=== PATIENT | female | born 1970 | race Two or more races ===

== ENCOUNTER 2024-09-01 13:19 | Outpatient (AMB) | payer MEDICAID, SELFPAY ==
[2024-09-01 13:26] VITALS: BP 123/74; PULSE 101; RESP 16; TEMP 36.9; O2SAT 94; BMI 57.2
--- NOTE | 2024-09-01 13:26 | PD.RESCLINIC ---
Vital Signs 09/01/24 13:26 Height 1.55 m Height Method Stated Weight 137.438 kg Weight Measurement Method Standing Scale BMI 57.2 BP 123/74 Blood Pressure Source Automatic Cuff Blood Pressure Location Left Upper Arm Position Sitting Respiration 16 Pulse 101 H Pulse Source Monitor Temp 98.5 F Temp Source Oral Pulse Oximetry (%) 94 L Oxygen Delivery Method Room Air Allergies/Meds Allergies & Medications Allergies No Known Allergies Allergy (Verified 09/01/24 13:27) Medication Reconciliation acetaminophen 500 mg tablet 500 mg PO Q6H PRN pain #20 tabs 07/26/20 [Rx Confirmed 09/01/24] omeprazole magnesium 20 mg tablet,delayed release (Prilosec OTC) 20 mg PO QDAY #60 tabs 07/26/20 [Rx Confirmed 09/01/24] cephalexin 750 mg capsule 750 mg PO TID #10 caps 07/31/24 [Rx Confirmed 09/01/24] tirzepatide (weight loss) 2.5 mg/0.5 mL subcutaneous pen injector (Zepbound) 2.5 mg (0.5 mL) subcut QWEEK #2 mL 08/11/24 [Rx Confirmed 09/01/24] docusate sodium 100 mg capsule 100 mg PO BID PRN Constipation #60 caps 09/01/24 [Rx] ferrous sulfate 325 mg (65 mg iron) tablet 325 mg PO Q48H #60 tabs 09/01/24 [Rx] furosemide 40 mg tablet 40 mg PO QAM #30 tabs 09/01/24 [Rx] omeprazole 20 mg capsule,delayed release 20 mg PO QDAY 30 days #30 caps 09/01/24 [Rx] MA Intake Visit Data Collection New Patient or Established: Established Patient (seen at [facility] within 3 years) Seen by Clinical Staff ONLY (RN/MA): No Pain Present Currently: Yes Pain Location: Knee Pain scale:: 3 Pain Scale Used: Morgan-Hoffman/Numerical PCP or OBGYN visit in last 3 months: Yes Do You Feel Safe at Home: Yes Authorities Contacted: N/A Smoking Status Smoking Status: Never smoker Immunization / Flu Flu Vaccine in the Last 12 Months: No Flu Vaccine Exclusion Criteria: No Exclusion Criteria Past Medical History Past Medical History NEUROLOGIC: Negative Seizures CARDIAC: Negative Cardiac Disorders or Congestive Heart Failure RESPIRATORY: Negative Chronic Obstructive Pulmonary Disease (COPD) or Asthma GASTROINTESTINAL: Positive Gastroesophageal Reflux Disease GENITOURINARY: Negative Renal Disease ENDOCRINE: Negative Diabetes Mellitus Type 1 or Diabetes Mellitus Type 2 HEMATOLOGIC: Positive Anemia; Negative Sickle Cell Disease OTHER HISTORY: Negative Blood Transfusions, Blood Transfusion Reaction or Anesthesia Reactions Family History FAMILY HISTORY: Positive Family Cancer Social History SMOKING STATUS: Smoking status: Never smoker SECOND HAND EXPOSURE: second hand exposure: No ALCOHOL: Alcohol Intake: Current ALCOHOL FREQUENCY: Alcohol Intake Frequency: 3 or More Drinks per Day HOUSING: Housing: House LIVES WITH: Lives With: Family Patient Clive Ranjeetmaryellen Social History Living Situation History Housing: House Housing Other:: pt lives with 2 kids and her fiance Tobacco History Smoking Status: Never smoker Second Hand Smoke Exposure: No Alcohol History Alcohol Intake: Current Alcohol Intake Frequency: 3 or More Drinks per Day Alcohol Intake Frequency Other:: every other day with 6 cans of beer Domestic Abuse History Do You Feel Safe at Home: Yes Review of Systems Report any current symptoms Only answer those that you have currently: Past Medical History Past Medical History Have you ever been diagnosed with any of the following: Neurological Problems Seizures: No Cardiology Problems Congestive Heart Failure: No Respiratory Problems Chronic Obstructive Pulmonary Disease (COPD): No Asthma: No Stomache/Intestinal Problems Gastroesophageal Reflux Disease: Yes Genital/Urinary Problems Renal Disease: No Endocrine Problems Diabetes Mellitus Type 1: No Diabetes Mellitus Type 2: No Blood Problems Anemia: Yes Sickle Cell Disease: No Other Problems Blood Transfusions: No Blood Transfusion Reaction: No Anesthesia Reactions: No History of Present Illness HPI Narrative Ms. carpenter is a 53 year old female with past medical history signifcant for symptomatic anemia and morbid obesity who presents to clinic for follow up. She was recently admitted to the hospital and recommended to follow up with a sleep study to use the CPAP and she was found to have a hemoglobin 9.9 as was told to get the 3-4 iron infusions at a center out patient. During her hospitalization also the hospitalist team recommended patient to lose weight in efforts to manage her obesity hypoventilation syndrome that is not requiring a CPAP at night. Patient is being seen at the [facility] for follow-up morbid obesity and anemia. CBC ordered for September, we will decide then if we need to schedule iron infusions. Refilled her GLP1. Objective/Exam Narrative Physical exam: GENERAL:Obese, Awake, alert and oriented. No acute distress. HEENT: Normocephalic, atraumatic and nontender.? Pupils are equal and reactive to light and accommodation.? Oral mucosa are moist. NECK: Supple without adenopathy.. Nontender, carotid pulse 2+ bilaterally without bruits, no JVD.? CHEST: Heart rate and rythm normal, no murmurs, gallops auscultated. S1 & 2 normal insensity. Nontender on palpation, no deformity and no crepitus. LUNGS: Lung sounds are clear.? No wheezing, rales or ronchi.? No intercostal subcostal retraction. Room air ABDOMEN: Soft,symmetric , nontender, no guarding or rebound tenderness. No abnormal masses palpated.? No pulsatile masses or bruits.? Bowel sounds are normoactive in all 4 quadrants. EXTREMITIES: Nontender.? No pitting edema.? No cyanosis.? Patient is able to move all 4 extremities. SKIN: No rashes noted. NEURO:? Cranial nerves intact.? There is no focalization.? GCS is 15. Assessment & Plan Diagnosis / Problem List (1) Anemia: Status: Acute Assessment & Plan: Ms. carpenter is a 53 year old female with past medical history signifcant for symptomatic anemia and morbid obesity who presents to clinic for follow up. She was recently admitted to the hospital and recommended to follow up with a sleep study to use the CPAP and she was found to have a hemoglobin 9.9 as was told to get the 3-4 iron infusions at a center out patient. During her hospitalization also the hospitalist team recommended patient to lose weight in efforts to manage her obesity hypoventilation syndrome that is not requiring a CPAP at night. Patient is being seen at the [facility] for follow-up morbid obesity and anemia. CBC ordered for September, we will decide then if we need to schedule iron infusions. Refilled her GLP1. Patient's care discussed with attending physician, Dr Sagar Steele MD PGY3 Plan: Follow up CBC in september Plan Follow up CBC in september Orders: Orders CBC 1 Month D64.9 - Anemia, unspecified Office Procedures [facility] Level of Care Nursing/Assessment Patient Status: Established Patient Nursing Assessment/Reassessment: Medication Reconciliation, Update PMH in EMR and Vital Signs Coordination of Care: Complex Care and Chronic Disease 1-5, Education Complex Pt/Fam and Staff clarify orders Established Patient Charge Established Patient Point Assignment: 85 Established Patient Point Charge: EP Level 3 (80-115)
== END 2024-09-01 14:18 | disposition home or self-care (01) ==
LOC: HODAHC 13:19
PROVIDERS: Supervising Provider Internal Medicine; Visit Provider Student in an Organized Health Care Education/Training Program
DX: D64.9 Anemia, unspecified (principal)
CPT/HCPCS: 99213; G0463

== ENCOUNTER 2024-10-06 14:35 | Outpatient (AMB) | payer MEDICAID, SELFPAY ==
[2024-10-06 10:11] VITALS: BP 125/78; PULSE 77; RESP 17; TEMP 36.5; O2SAT 98; BMI 57.2
--- NOTE | 2024-10-21 09:59 | ACNOTE_ITS ---
Vital Signs 10/06/24 10:11 Height 1.55 m Height Method Stated Weight 137.45 kg Weight Measurement Method Standing Scale BMI 57.2 BP 125/78 Blood Pressure Source Automatic Cuff Blood Pressure Location Left Upper Arm Position Sitting Respiration 17 Pulse 77 Pulse Source Monitor Temp 97.7 F Temp Source Oral Pulse Oximetry (%) 98 Oxygen Delivery Method Room Air Allergies/Meds Allergies & Medications Allergies No Known Allergies Allergy (Verified 10/27/24 15:04) Medication Reconciliation acetaminophen 500 mg tablet 500 mg PO Q6H PRN pain #20 tabs 07/26/20 [Rx Confirmed 10/27/24] omeprazole magnesium 20 mg tablet,delayed release (Prilosec OTC) 20 mg PO QDAY #60 tabs 07/26/20 [Rx Confirmed 10/27/24] cephalexin 750 mg capsule 750 mg PO TID #10 caps 07/31/24 [Rx Confirmed 10/27/24] tirzepatide (weight loss) 2.5 mg/0.5 mL subcutaneous pen injector (Zepbound) 2.5 mg (0.5 mL) subcut QWEEK #2 mL 08/11/24 [Rx Confirmed 10/27/24] docusate sodium 100 mg capsule 100 mg PO BID PRN Constipation #60 caps 09/01/24 [Rx Confirmed 10/27/24] ferrous sulfate 325 mg (65 mg iron) tablet 325 mg PO Q48H #60 tabs 10/06/24 [Rx Confirmed 10/27/24] furosemide 20 mg tablet 20 mg PO QPM 30 days #30 tabs 10/06/24 [Rx Confirmed 10/27/24] furosemide 40 mg tablet 40 mg PO QAM #30 tabs 10/06/24 [Rx Confirmed 10/27/24] omeprazole 20 mg capsule,delayed release 20 mg PO QDAY 30 days #30 caps 10/06/24 [Rx Confirmed 10/27/24] tirzepatide 7.5 mg/0.5 mL subcutaneous pen injector 7.5 mg (0.5 mL) subcut QWEEK 30 days #2.5 mL 10/06/24 [Rx Confirmed 10/27/24] tirzepatide 10 mg/0.5 mL subcutaneous pen injector 10 mg (0.5 mL) subcut QWEEK 4 weeks #2 mL 10/27/24 [Rx] MA Intake Visit Data Collection New Patient or Established: Established Patient (seen at [facility] within 3 years) Seen by Clinical Staff ONLY (RN/MA): No Pain Present Currently: No Pain scale:: 0 Pain Scale Used: Morgan-Hoffman/Numerical [employer]ulic Lift [employer] Required: No PCP or OBGYN visit in last 3 months: Yes Hx Now: No Do You Feel Safe at Home: Yes Authorities Contacted: N/A Smoking Status Smoking Status: Never smoker Immunization / Flu Flu Vaccine in the Last 12 Months: No Flu Vaccine Exclusion Criteria: No Exclusion Criteria Past Medical History Past Medical History NEUROLOGIC: Negative Seizures CARDIAC: Negative Cardiac Disorders or Congestive Heart Failure RESPIRATORY: Negative Chronic Obstructive Pulmonary Disease (COPD) or Asthma GASTROINTESTINAL: Positive Gastroesophageal Reflux Disease GENITOURINARY: Negative Renal Disease ENDOCRINE: Negative Diabetes Mellitus Type 1 or Diabetes Mellitus Type 2 HEMATOLOGIC: Positive Anemia; Negative Sickle Cell Disease OTHER HISTORY: Negative Blood Transfusions, Blood Transfusion Reaction or Anesthesia Reactions Family History FAMILY HISTORY: Positive Family Cancer Social History SMOKING STATUS: Smoking status: Never smoker SECOND HAND EXPOSURE: second hand exposure: No ALCOHOL: Alcohol Intake: Current ALCOHOL FREQUENCY: Alcohol Intake Frequency: 3 or More Drinks per Day HOUSING: Housing: House LIVES WITH: Lives With: Family Patient Portal Ranjeetmaryellen Social History Living Situation History Housing: House Housing Other:: pt lives with 2 kids and her fiance Tobacco History Smoking Status: Never smoker Second Hand Smoke Exposure: No Alcohol History Alcohol Intake: Current Alcohol Intake Frequency: 3 or More Drinks per Day Alcohol Intake Frequency Other:: every other day with 6 cans of beer Domestic Abuse History Do You Feel Safe at Home: Yes Review of Systems Report any current symptoms Only answer those that you have currently: Past Medical History Past Medical History Have you ever been diagnosed with any of the following: Neurological Problems Seizures: No Cardiology Problems Congestive Heart Failure: No Respiratory Problems Chronic Obstructive Pulmonary Disease (COPD): No Asthma: No Stomache/Intestinal Problems Gastroesophageal Reflux Disease: Yes Genital/Urinary Problems Renal Disease: No Endocrine Problems Diabetes Mellitus Type 1: No Diabetes Mellitus Type 2: No Blood Problems Anemia: Yes Sickle Cell Disease: No Other Problems Blood Transfusions: No Blood Transfusion Reaction: No Anesthesia Reactions: No History of Present Illness HPI Narrative Ms. carpenter is a 53 year old female with past medical history significant for symptomatic anemia and morbid obesity on cpap and home oxygen. Pt was recently started on zepbound for weight loss. This is month 2, pt's dose was increased last visit and pt was able to tolerate the change. Pt denies SOB, GERD, diarhhea and/or constipation. Pt had lost 5 pounds since last visit. Pt denies any flu like symtpoms and denies sick contacts. Review of Systems Review of Systems Systems Reviewed: All systems reviewed, normal except as documented Objective/Exam Narrative Physical exam: GENERAL: A&Ox3 . Awake, Not in acute distress, morbidly obese female NEURO: no focal neurological deficits HEENT: Atraumatic, Normocephalic. mucous membranes moist. Eyes open, symmetrical, & clear HEART: Normal Heart Sounds LUNGS: Clear to auscultation with no wheezing or crackles. ABDOMEN: soft, non-distended, non-tender SKIN: No Rash or ecchymoses EXTREMITIES: No edema, tenderness, able to move all 4 extremities, pedal pulses palpated Assessment & Plan Diagnosis / Problem List (1) Morbid obesity: Status: Acute Assessment & Plan: Pt's BMI is 57.2 percentile, currently weights 137.5 Pt has lost 5 pounds Plan: -increase tirzepatide to 7.5 mg/0.5 mL Q weekly -continue to diet and exercise -stay hydrated -report and monitor side affects -follow up in 1 month Additional Assessment Internal Medicine Attending Note: Case discussed with and agree with note and management plan of Resident Physician as per Resident's Note above. Issues of concern for present visit are as follows: Follow-up visit. Patient tolerating GLP-1. Has lost just over 2 kg since last visit. We will increase dose of GLP up. Continue to work at weight loss as will benefit obesity hypoventilation. Consideration for sleep study in the future to assess for sleep apnea though prior workup in hospital did not demonstrate need for CPAP. Recheck CBC at next visit with history of anemia, iron deficiency, may need iron infusion. Babar Keith MD Physician Billing Established Patient Established Patient: E/M Level 3-CPT 82851 Office Procedures [facility] Level of Care Nursing/Assessment Patient Status: Established Patient Nursing Assessment/Reassessment: Medication Reconciliation, Update PMH in EMR and Vital Signs Coordination of Care: Complex Care and Chronic Disease 1-5, Consent,records obtained, informed consent, Education Simp Pt/Fam, Lab and Imaging orders and Staff clarify orders Established Patient Charge Established Patient Point Assignment: 100 Established Patient Point Charge: EP Level 3 (80-115)
== END 2024-10-06 15:30 | disposition home or self-care (01) ==
LOC: HODAHC 14:35
PROVIDERS: Supervising Provider Internal Medicine
DX: E66.01 Morbid (severe) obesity due to excess calories (principal); Z68.43 Body mass index [BMI] 50.0-59.9, adult; Z99.89 Dependence on other enabling machines and devices
CPT/HCPCS: 99213; G0463

== ENCOUNTER 2024-10-27 14:55 | Outpatient (AMB) | payer MEDICAID, SELFPAY ==
[2024-10-27 15:03] VITALS: BP 124/85; PULSE 90; RESP 18; TEMP 36.8; O2SAT 92; BMI 56.4
--- NOTE | 2024-10-27 15:03 | PD.RESCLINIC ---
Vital Signs 10/27/24 15:03 Height 1.55 m Height Method Stated Weight 135.397 kg Weight Measurement Method Standing Scale BMI 56.4 BP 124/85 H Blood Pressure Source Automatic Cuff Blood Pressure Location Left Upper Arm Position Sitting Respiration 18 Pulse 90 Pulse Source Monitor Temp 98.3 F Temp Source Oral Pulse Oximetry (%) 92 L Oxygen Delivery Method Room Air Allergies/Meds Allergies & Medications Allergies No Known Allergies Allergy (Verified 10/27/24 15:04) Medication Reconciliation acetaminophen 500 mg tablet 500 mg PO Q6H PRN pain #20 tabs 07/26/20 [Rx Confirmed 10/27/24] omeprazole magnesium 20 mg tablet,delayed release (Prilosec OTC) 20 mg PO QDAY #60 tabs 07/26/20 [Rx Confirmed 10/27/24] cephalexin 750 mg capsule 750 mg PO TID #10 caps 07/31/24 [Rx Confirmed 10/27/24] tirzepatide (weight loss) 2.5 mg/0.5 mL subcutaneous pen injector (Zepbound) 2.5 mg (0.5 mL) subcut QWEEK #2 mL 08/11/24 [Rx Confirmed 10/27/24] docusate sodium 100 mg capsule 100 mg PO BID PRN Constipation #60 caps 09/01/24 [Rx Confirmed 10/27/24] ferrous sulfate 325 mg (65 mg iron) tablet 325 mg PO Q48H #60 tabs 10/06/24 [Rx Confirmed 10/27/24] furosemide 20 mg tablet 20 mg PO QPM 30 days #30 tabs 10/06/24 [Rx Confirmed 10/27/24] furosemide 40 mg tablet 40 mg PO QAM #30 tabs 10/06/24 [Rx Confirmed 10/27/24] omeprazole 20 mg capsule,delayed release 20 mg PO QDAY 30 days #30 caps 10/06/24 [Rx Confirmed 10/27/24] tirzepatide 7.5 mg/0.5 mL subcutaneous pen injector 7.5 mg (0.5 mL) subcut QWEEK 30 days #2.5 mL 10/06/24 [Rx Confirmed 10/27/24] tirzepatide 10 mg/0.5 mL subcutaneous pen injector 10 mg (0.5 mL) subcut QWEEK #2 mL 11/07/24 [Rx] MA Intake Visit Data Collection New Patient or Established: Established Patient (seen at [facility] within 3 years) Pain Present Currently: Yes Pain Location: Knee Pain scale:: 5 Pain Scale Used: Morgan-Hoffman/Numerical PCP or OBGYN visit in last 3 months: Yes Smoking Status Smoking Status: Never smoker Immunization / Flu Flu Vaccine in the Last 12 Months: No Flu Vaccine Exclusion Criteria: No Exclusion Criteria Past Medical History Past Medical History NEUROLOGIC: Negative Seizures CARDIAC: Negative Cardiac Disorders or Congestive Heart Failure RESPIRATORY: Negative Chronic Obstructive Pulmonary Disease (COPD) or Asthma GASTROINTESTINAL: Positive Gastroesophageal Reflux Disease GENITOURINARY: Negative Renal Disease ENDOCRINE: Negative Diabetes Mellitus Type 1 or Diabetes Mellitus Type 2 HEMATOLOGIC: Positive Anemia; Negative Sickle Cell Disease OTHER HISTORY: Negative Blood Transfusions, Blood Transfusion Reaction or Anesthesia Reactions Family History FAMILY HISTORY: Positive Family Cancer Social History SMOKING STATUS: Smoking status: Never smoker SECOND HAND EXPOSURE: second hand exposure: No ALCOHOL: Alcohol Intake: Current ALCOHOL FREQUENCY: Alcohol Intake Frequency: 3 or More Drinks per Day HOUSING: Housing: House LIVES WITH: Lives With: Family Patient Clive Tucker Social History Living Situation History Housing: House Housing Other:: pt lives with 2 kids and her fiance Tobacco History Smoking Status: Never smoker Second Hand Smoke Exposure: No Alcohol History Alcohol Intake: Current Alcohol Intake Frequency: 3 or More Drinks per Day Alcohol Intake Frequency Other:: every other day with 6 cans of beer Review of Systems Report any current symptoms Only answer those that you have currently: Past Medical History Past Medical History Have you ever been diagnosed with any of the following: Neurological Problems Seizures: No Cardiology Problems Congestive Heart Failure: No Respiratory Problems Chronic Obstructive Pulmonary Disease (COPD): No Asthma: No Stomache/Intestinal Problems Gastroesophageal Reflux Disease: Yes Genital/Urinary Problems Renal Disease: No Endocrine Problems Diabetes Mellitus Type 1: No Diabetes Mellitus Type 2: No Blood Problems Anemia: Yes Sickle Cell Disease: No Other Problems Blood Transfusions: No Blood Transfusion Reaction: No Anesthesia Reactions: No History of Present Illness HPI Narrative Ms. carpenter is a 53 year old female with past medical history significant for symptomatic anemia and morbid obesity on cpap at night and home oxygen presents to the office for a follow up appointment for weightloss. Pt is month 3 of zepbound and reported minimal weight loss with the previuous dose. Pt states she has lost 5 pounds total since started zepbound 2 months ago. She reports she has not has much of an appetite and has significantly decreased caloric intake she is not losing the weight at a desired rate. Pt reported no side affects to current dose of zepbound, denies nausea, GERD, diarrhea or constipation. she states she can work on drinking more water. Pt wanted to up the dose of zepbound to the next dose. Pt also wants to start exercising once the weather gets better. Pt states her exercise is limited because of the need for oxygen however she states once the weather gets better than she would be able to walk outdoor for 30 mins. Pt is also requesting referral for routine papsmear and mammogram as she has not gotten either one of them done. Pt has no other complaints. Review of Systems Review of Systems Systems Reviewed: All systems reviewed, normal except as documented Objective/Exam Narrative Physical exam: GENERAL: A&Ox3 . Awake, Not in acute distress NEURO: no focal neurological deficits HEENT: Atraumatic, Normocephalic. mucous membranes moist. Eyes open, symmetrical, & clear HEART: Normal Heart Sounds LUNGS: Clear to auscultation with no wheezing or crackles. ABDOMEN: soft, non-distended, non-tender, bowel sounds heard, no guarding or rebound tenderness SKIN: No Rash or ecchymoses EXTREMITIES: 1+ edema, tenderness, able to move all 4 extremities, pedal pulses palpated Assessment & Plan Diagnosis / Problem List (1) Morbid obesity: Status: Acute Assessment & Plan: Currently Pt is has lost 5 pounds on 2 months of zepound. Pt reports no side affects including nausea/vomiting, diarhea, constipation or GERD Plan: -increase zepbound to 10mg -continue calorie count -introduce mild excercise to daily routine (2) Symptomatic anemia: Status: Acute Assessment & Plan: Contributing to her need for oxygen. Supplementing iron orally. Plan: Recheck of CBC ordered at prior visit. (3) Breast cancer screening: Status: Acute Assessment & Plan: Pt has never gotten routine mammogram done. Current mammogram screening for women include Annual mammograms at the age of 40. Plan: -mammogram referral sent Orders: Orders PARAM CAD screening BI 10/27/24 Z12.39 - Encounter for other screening for malignant neoplasm of breast CBC 10/27/24 Comprehensive Metabolic Panel 10/27/24 Vitamin D 25 Hydroxy Total 10/27/24 Referrals [employer]DER Additional Assessment Internal Medicine Attending Note: Case discussed with and agree with note and management plan of Resident Physician as per Resident's Note above. Issues of concern for present visit are as follows: Follow-up visit. Blood pressure remains under good control. Has lost approximately 2 kg since visit earlier in month, but still with a BMI of 56.4. Has decreased calorie intake. Tolerating Zepbound. Continuing to use home oxygen, CPAP at night. Orally supplementing iron with history of iron deficiency anemia. Still has decreased exercise tolerance, exertional dyspnea. Finds it difficult to move given having to use home oxygen. Has not been able to resume work. We will try increasing the dose of Zepbound. Continue diuretics, iron supplementation, PPI. Patient would benefit from formal sleep study, she will need a referral for this. Recheck of CBC ordered at prior visit. At next visit, would do ambulatory pulse ox check/walking test to assess need for continued oxygen supplementation with exertion. Babar Keith MD Physician Billing Established Patient Established Patient: E/M Level 3-CPT 42418 Office Procedures [facility] Level of Care Nursing/Assessment Patient Status: Established Patient Nursing Assessment/Reassessment: Medication Reconciliation, Update PMH in EMR and Vital Signs Coordination of Care: Complex Care and Chronic Disease 1-5, Consent,records obtained, informed consent, Education Simp Pt/Fam, Lab and Imaging orders and Staff clarify orders Established Patient Charge Established Patient Point Assignment: 100 Established Patient Point Charge: EP Level 3 (80-115)
== END 2024-10-27 16:00 | disposition home or self-care (01) ==
LOC: HODAHC 14:55
PROVIDERS: Supervising Provider Internal Medicine
DX: E66.01 Morbid (severe) obesity due to excess calories (principal); D50.9 Iron deficiency anemia, unspecified; Z68.43 Body mass index [BMI] 50.0-59.9, adult; R06.00 Dyspnea, unspecified; Z99.81 Dependence on supplemental oxygen; Z99.89 Dependence on other enabling machines and devices
CPT/HCPCS: 99213; G0463

== ENCOUNTER 2024-11-24 15:42 | Outpatient (AMB) | payer MEDICAID, SELFPAY ==
[2024-11-24 15:33] VITALS: BP 128/87; PULSE 109; RESP 16; TEMP 36.2; O2SAT 99; BMI 55.5
--- NOTE | 2024-11-24 15:33 | ACNOTE_ITS ---
Vital Signs 11/24/24 15:33 Height 1.55 m Height Method Stated Weight 133.47 kg Weight Measurement Method Standing Scale BMI 55.5 BP 128/87 H Blood Pressure Source Automatic Cuff Blood Pressure Location Left Upper Arm Position Sitting Respiration 16 Pulse 109 H Pulse Source Monitor Temp 97.2 F Temp Source Oral Pulse Oximetry (%) 99 Oxygen Delivery Method Room Air Allergies/Meds Allergies & Medications Allergies No Known Allergies Allergy (Verified 11/24/24 15:34) Medication Reconciliation acetaminophen 500 mg tablet 500 mg PO Q6H PRN pain #20 tabs 07/26/20 [Rx Confirmed 11/24/24] omeprazole magnesium 20 mg tablet,delayed release (Prilosec OTC) 20 mg PO QDAY #60 tabs 07/26/20 [Rx Confirmed 11/24/24] cephalexin 750 mg capsule 750 mg PO TID #10 caps 07/31/24 [Rx Confirmed 11/24/24 ] tirzepatide (weight loss) 2.5 mg/0.5 mL subcutaneous pen injector (Zepbound) 2.5 mg (0.5 mL) subcut QWEEK #2 mL 08/11/24 [Rx Confirmed 11/24/24] furosemide 20 mg tablet 20 mg PO QPM 30 days #30 tabs 10/06/24 [Rx Confirmed 11/24/24] tirzepatide 7.5 mg/0.5 mL subcutaneous pen injector 7.5 mg (0.5 mL) subcut QWEEK 30 days #2.5 mL 10/06/24 [Rx Confirmed 11/24/24] tirzepatide 10 mg/0.5 mL subcutaneous pen injector 10 mg (0.5 mL) subcut QWEEK #2 mL 11/07/24 [Rx Confirmed 11/24/24] docusate sodium 100 mg capsule 100 mg PO BID PRN Constipation #60 caps 11/24/24 [Rx] ferrous sulfate 325 mg (65 mg iron) tablet 325 mg PO Q48H #60 tabs 11/24/24 [Rx] furosemide 40 mg tablet 40 mg PO QAM #30 tabs 11/24/24 [Rx] omeprazole 20 mg capsule,delayed release 20 mg PO QDAY 30 days #30 caps 11/24/24 [Rx] ND Intake Visit Data Collection New Patient or Established: Established Patient (seen at [facility] within 3 years) Seen by Clinical Staff ONLY (RN/MA): No Pain Present Currently: No Pain scale:: 0 Pain Scale Used: Morgan-Hoffman/Numerical Process Coordinator Required: No PCP or OBGYN visit in last 3 months: Yes Date of Last PCP or OBGYN visit: 10/27/24 Hx Now: No Do You Feel Safe at Home: Yes Authorities Contacted: N/A Smoking Status Smoking Status: Never smoker Immunization / Flu Flu Vaccine in the Last 12 Months: Yes Flu Vaccine Exclusion Criteria: No Exclusion Criteria Past Medical History Past Medical History NEUROLOGIC: Negative Seizures CARDIAC: Negative Cardiac Disorders or Congestive Heart Failure RESPIRATORY: Negative Chronic Obstructive Pulmonary Disease (COPD) or Asthma GASTROINTESTINAL: Positive Gastroesophageal Reflux Disease GENITOURINARY: Negative Renal Disease ENDOCRINE: Negative Diabetes Mellitus Type 1 or Diabetes Mellitus Type 2 HEMATOLOGIC: Positive Anemia; Negative Sickle Cell Disease OTHER HISTORY: Negative Blood Transfusions, Blood Transfusion Reaction or Anesthesia Reactions Family History FAMILY HISTORY: Positive Family Cancer Social History SMOKING STATUS: Smoking status: Never smoker SECOND HAND EXPOSURE: second hand exposure: No ALCOHOL: Alcohol Intake: Current ALCOHOL FREQUENCY: Alcohol Intake Frequency: 3 or More Drinks per Day HOUSING: Housing: House LIVES WITH: Lives With: Family Patient Portal Questionaires PHQ-9 PHQ-2 Over the last 2 weeks, how often have you been bothered by any of the following problems? 1. Little interest or pleasure in doing things: not at all 2. Feeling down, depressed, or hopeless: not at all Total score: 0 Depression screen completed yes Social History Living Situation History Housing: House Housing Other:: pt lives with 2 kids and her fiance Tobacco History Smoking Status: Never smoker Second Hand Smoke Exposure: No Alcohol History Alcohol Intake: Current Alcohol Intake Frequency: 3 or More Drinks per Day Alcohol Intake Frequency Other:: every other day with 6 cans of beer Domestic Abuse History Do You Feel Safe at Home: Yes Review of Systems Report any current symptoms Only answer those that you have currently: Past Medical History Past Medical History Have you ever been diagnosed with any of the following: Neurological Problems Seizures: No Cardiology Problems Congestive Heart Failure: No Respiratory Problems Chronic Obstructive Pulmonary Disease (COPD): No Asthma: No Stomache/Intestinal Problems Gastroesophageal Reflux Disease: Yes Genital/Urinary Problems Renal Disease: No Endocrine Problems Diabetes Mellitus Type 1: No Diabetes Mellitus Type 2: No Blood Problems Anemia: Yes Sickle Cell Disease: No Other Problems Blood Transfusions: No Blood Transfusion Reaction: No Anesthesia Reactions: No History of Present Illness HPI Narrative mammogram is scheduled February 13. without oxygen during day 2-3 hours during the day when running errands. Pt regularly used bipap at night. recently had flu like symptoms due to grand kids being ill. referral to quality control systems manager labs next appointment need refill to zepbound, omeprazole, iron, lasix 40mg, colace, send to [facility] Assessment & Plan Diagnosis / Problem List (1) Obesity hypoventilation syndrome: Status: Acute Orders: Referrals Sleep Study E66.2 - Morbid (severe) obesity with alveolar hypoventilation Office Procedures [facility] Level of Care Nursing/Assessment Patient Status: Established Patient Nursing Assessment/Reassessment: BP Monitoring, Medication Reconciliation, Update PMH in EMR and Vital Signs Coordination of Care: Consent,records obtained, informed consent, Education Simp Pt/Fam, Lab and Imaging orders and Staff clarify orders Established Patient Charge Established Patient Point Assignment: 90 Established Patient Point Charge: EP Level 3 (80-115)
== END 2024-11-24 15:42 | disposition home or self-care (01) ==
LOC: HODAHC 15:42
DX: E66.2 Morbid (severe) obesity with alveolar hypoventilation (principal)
CPT/HCPCS: 99213; G0463

== ENCOUNTER → 2024-12-14 | Outpatient (CLI) | payer MEDICAID, SELFPAY ==
--- NOTE | 2024-12-14 11:00 | XR_ITS ---
Examination: Screening digital mammography, bilateral Computer aided detection 3-D breast Tomosynthesis, bilateral Date and time of exam: December 14, 2024 1102 hours Compared to mammograms dating to February 06, 2015 Indication: Screening Technique: Nonmagnified MLO, CC views of the breasts to been obtained, reconstructed from 3-D Tomosynthesis images. R2 computer aided detection program utilized for evaluation of suspicious masses and/or abnormal calcifications. 3-D Tomosynthesis images obtained. Findings: Scattered areas of fibroglandular density. Benign calcifications. No interval suspicious masses Impression: BI-RADS category II: Benign Findings. Recommend 1 year follow-up mammogram.
== END | disposition home or self-care (01) ==
DX: Z12.31 Encounter for screening mammogram for malignant neoplasm of breast (principal); R92.323 Mammographic fibroglandular density, bilateral breasts; R92.1 Mammographic calcification found on diagnostic imaging of breast
CPT/HCPCS: 77063; 77067

== ENCOUNTER 2025-01-12 13:17 | Outpatient (AMB) | payer MEDICAID, SELFPAY ==
--- NOTE | 2025-01-12 13:41 | ACNOTE_ITS ---
Vital Signs 01/12/25 13:43 Weight 134.717 kg Weight Measurement Method Standing Scale BP 138/91 H Blood Pressure Source Automatic Cuff Blood Pressure Location Left Upper Arm Position Sitting Respiration 18 Pulse 88 Pulse Source Monitor Temp 97.8 F Temp Source Temporal Artery Scan Pulse Oximetry (%) 96 Oxygen Delivery Method Room Air Allergies/Meds Allergies & Medications Allergies No Known Allergies Allergy (Verified 01/12/25 13:44) Medication Reconciliation acetaminophen 500 mg tablet 500 mg PO Q6H PRN pain #20 tabs 07/26/20 [Rx Confirmed 01/12/25] omeprazole magnesium 20 mg tablet,delayed release (Prilosec OTC) 20 mg PO QDAY #60 tabs 07/26/20 [Rx Confirmed 01/12/25] cephalexin 750 mg capsule 750 mg PO TID #10 caps 07/31/24 [Rx Confirmed 01/12/25] tirzepatide (weight loss) 2.5 mg/0.5 mL subcutaneous pen injector (Zepbound) 2.5 mg (0.5 mL) subcut QWEEK #2 mL 08/11/24 [Rx Confirmed 01/12/25] furosemide 20 mg tablet 20 mg PO QPM 30 days #30 tabs 10/06/24 [Rx Confirmed 01/12/25] tirzepatide 7.5 mg/0.5 mL subcutaneous pen injector 7.5 mg (0.5 mL) subcut QWEEK 30 days #2.5 mL 10/06/24 [Rx Confirmed 01/12/25] docusate sodium 100 mg capsule 100 mg PO BID PRN Constipation #60 caps 11/24/24 [Rx Confirmed 01/12/25] furosemide 40 mg tablet 40 mg PO QAM #30 tabs 11/24/24 [Rx Confirmed 01/12/25] clotrimazole 1 % topical cream (Antifungal (clotrimazole)) 1 applic topical BID 8 weeks #30 grams 01/12/25 [Rx] ferrous sulfate 325 mg (65 mg iron) tablet 325 mg PO Q48H #60 tabs 01/12/25 [Rx] naltrexone 50 mg tablet 50 mg PO QDAY #30 tabs 01/12/25 [Rx] omeprazole 20 mg capsule,delayed release 20 mg PO QDAY 30 days #30 caps 01/12/25 [Rx] tirzepatide 10 mg/0.5 mL subcutaneous pen injector 12.5 mg (0.625 mL) subcut QWEEK #2 mL 01/12/25 [Rx] SHELLIE Intake Visit Data Collection New Patient or Established: Established Patient (seen at [facility] within 3 years) Seen by Clinical Staff ONLY (RN/SHELLIE): No Pain Present Currently: No Pain scale:: 0 Pain Scale Used: Morgan-Hoffman/Numerical Center Medical Director Required: No PCP or OBGYN visit in last 3 months: No Hx Now: No Do You Feel Safe at Home: Yes Authorities Contacted: N/A Smoking Status Smoking Status: Never smoker Immunization / Flu Flu Vaccine in the Last 12 Months: No Flu Vaccine Exclusion Criteria: No Exclusion Criteria Past Medical History Past Medical History NEUROLOGIC: Negative Seizures CARDIAC: Negative Cardiac Disorders or Congestive Heart Failure RESPIRATORY: Negative Chronic Obstructive Pulmonary Disease (COPD) or Asthma GASTROINTESTINAL: Positive Gastroesophageal Reflux Disease GENITOURINARY: Negative Renal Disease ENDOCRINE: Negative Diabetes Mellitus Type 1 or Diabetes Mellitus Type 2 HEMATOLOGIC: Positive Anemia; Negative Sickle Cell Disease OTHER HISTORY: Negative Blood Transfusions, Blood Transfusion Reaction or Anesthesia Reactions Family History FAMILY HISTORY: Positive Family Cancer Social History SMOKING STATUS: Smoking status: Never smoker SECOND HAND EXPOSURE: second hand exposure: No ALCOHOL: Alcohol Intake: Current ALCOHOL FREQUENCY: Alcohol Intake Frequency: 3 or More Drinks per Day HOUSING: Housing: House LIVES WITH: Lives With: Family Patient Portal Questionaires PHQ-9 PHQ-2 Over the last 2 weeks, how often have you been bothered by any of the following problems? 1. Little interest or pleasure in doing things: not at all Social History Living Situation History Housing: House Housing Other:: pt lives with 2 kids and her fiance Tobacco History Smoking Status: Never smoker Second Hand Smoke Exposure: No Alcohol History Alcohol Intake: Current Alcohol Intake Frequency: 3 or More Drinks per Day Alcohol Intake Frequency Other:: every other day with 6 cans of beer Domestic Abuse History Do You Feel Safe at Home: Yes Review of Systems Report any current symptoms Only answer those that you have currently: Past Medical History Past Medical History Have you ever been diagnosed with any of the following: Neurological Problems Seizures: No Cardiology Problems Congestive Heart Failure: No Respiratory Problems Chronic Obstructive Pulmonary Disease (COPD): No Asthma: No Stomache/Intestinal Problems Gastroesophageal Reflux Disease: Yes Genital/Urinary Problems Renal Disease: No Endocrine Problems Diabetes Mellitus Type 1: No Diabetes Mellitus Type 2: No Blood Problems Anemia: Yes Sickle Cell Disease: No Other Problems Blood Transfusions: No Blood Transfusion Reaction: No Anesthesia Reactions: No History of Present Illness HPI Narrative Ms. Stewart is a 54 year old female with past medical history significant for symptomatic anemia, GERD and morbid obesity. 01/12: Pt is here for follow up appointment for her weight loss. Pt states she has not lost any weight has platued Assessment & Plan Diagnosis / Problem List (1) Morbid obesity: Status: Acute (2) Alcohol abuse: Status: Acute Office Procedures [facility] Level of Care Nursing/Assessment Patient Status: Established Patient Nursing Assessment/Reassessment: Medication Reconciliation, Update PMH in EMR and Vital Signs Coordination of Care: Complex Care and Chronic Disease 1-5, Consent,records obtained, informed consent, Education Simp Pt/Fam, Lab and Imaging orders and Staff clarify orders Established Patient Charge Established Patient Point Assignment: 100 Established Patient Point Charge: EP Level 3 (80-115)
[2025-01-12 13:43] VITALS: BP 138/91; PULSE 88; RESP 18; TEMP 36.6; O2SAT 96
== END 2025-01-12 14:38 | disposition home or self-care (01) ==
LOC: HODAHC 13:17
PROVIDERS: Supervising Provider Internal Medicine
DX: E66.01 Morbid (severe) obesity due to excess calories (principal)
CPT/HCPCS: 99213; G0463

== ENCOUNTER 2025-02-09 14:01 | Outpatient (AMB) | payer MEDICAID, SELFPAY ==
--- NOTE | 2025-02-09 14:07 | PD.RESCLINIC ---
Vital Signs 02/09/25 14:08 Height 1.55 m Height Method Stated Weight 133.47 kg Weight Measurement Method Standing Scale BMI 55.5 BP 144/90 H Blood Pressure Source Automatic Cuff Blood Pressure Location Left Upper Arm Position Sitting Respiration 18 Pulse 97 Pulse Source Monitor Temp 98 F Temp Source Oral Pulse Oximetry (%) 96 Oxygen Delivery Method Room Air Allergies/Meds Allergies & Medications Allergies No Known Allergies Allergy (Verified 02/09/25 14:09) Medication Reconciliation acetaminophen 500 mg tablet 500 mg PO Q6H PRN pain #20 tabs 07/26/20 [Rx Confirmed 02/09/25] omeprazole magnesium 20 mg tablet,delayed release (Prilosec OTC) 20 mg PO QDAY #60 tabs 07/26/20 [Rx Confirmed 02/09/25] cephalexin 750 mg capsule 750 mg PO TID #10 caps 07/31/24 [Rx Confirmed 02/09/25] tirzepatide (weight loss) 2.5 mg/0.5 mL subcutaneous pen injector (Zepbound) 2.5 mg (0.5 mL) subcut QWEEK #2 mL 08/11/24 [Rx Confirmed 02/09/25] furosemide 20 mg tablet 20 mg PO QPM 30 days #30 tabs 10/06/24 [Rx Confirmed 02/09/25] tirzepatide 7.5 mg/0.5 mL subcutaneous pen injector 7.5 mg (0.5 mL) subcut QWEEK 30 days #2.5 mL 10/06/24 [Rx Confirmed 02/09/25] docusate sodium 100 mg capsule 100 mg PO BID PRN Constipation #60 caps 11/24/24 [Rx Confirmed 02/09/25] furosemide 40 mg tablet 40 mg PO QAM #30 tabs 11/24/24 [Rx Confirmed 02/09/25] clotrimazole 1 % topical cream (Antifungal (clotrimazole)) 1 applic topical BID 8 weeks #30 grams 01/12/25 [Rx Confirmed 02/09/25] ferrous sulfate 325 mg (65 mg iron) tablet 325 mg PO Q48H #60 tabs 01/12/25 [Rx Confirmed 02/09/25] naltrexone 50 mg tablet 50 mg PO QDAY #30 tabs 01/12/25 [Rx Confirmed 02/09/25] omeprazole 20 mg capsule,delayed release 20 mg PO QDAY 30 days #30 caps 01/12/25 [Rx Confirmed 02/09/25] tirzepatide 10 mg/0.5 mL subcutaneous pen injector 12.5 mg (0.625 mL) subcut QWEEK #2 mL 01/12/25 [Rx Confirmed 02/09/25] SHELLIE Intake Visit Data Collection New Patient or Established: Established Patient (seen at [facility] within 3 years) Seen by Clinical Staff ONLY (RN/SHELLIE): No Reason for Visit:: LAB RESULTS/FOLLOW UP Pain Present Currently: No Pain scale:: 0 Pain Scale Used: Morgan-Hoffman/Numerical Senior Ui Ux Developer Required: No PCP or OBGYN visit in last 3 months: No Hx Now: No Do You Feel Safe at Home: Yes Smoking Status Smoking Status: Never smoker Immunization / Flu Flu Vaccine in the Last 12 Months: No Flu Vaccine Exclusion Criteria: No Exclusion Criteria Past Medical History Past Medical History NEUROLOGIC: Negative Seizures CARDIAC: Negative Cardiac Disorders or Congestive Heart Failure RESPIRATORY: Negative Chronic Obstructive Pulmonary Disease (COPD) or Asthma GASTROINTESTINAL: Positive Gastroesophageal Reflux Disease GENITOURINARY: Negative Renal Disease ENDOCRINE: Negative Diabetes Mellitus Type 1 or Diabetes Mellitus Type 2 HEMATOLOGIC: Positive Anemia; Negative Sickle Cell Disease OTHER HISTORY: Negative Blood Transfusions, Blood Transfusion Reaction or Anesthesia Reactions Family History FAMILY HISTORY: Positive Family Cancer Social History SMOKING STATUS: Smoking status: Never smoker SECOND HAND EXPOSURE: second hand exposure: No ALCOHOL: Alcohol Intake: Current ALCOHOL FREQUENCY: Alcohol Intake Frequency: 3 or More Drinks per Day HOUSING: Housing: House LIVES WITH: Lives With: Family Patient Portal Questionaires PHQ-9 PHQ-2 Over the last 2 weeks, how often have you been bothered by any of the following problems? 1. Little interest or pleasure in doing things: not at all 2. Feeling down, depressed, or hopeless: not at all Total score: 0 PHQ-9 3. Trouble falling or staying asleep, or sleeping too much: Not at all 4. Feeling tired or having little energy: Not at all 5. Poor appetite or overeating: Not at all 6. Feeling bad about yourself - or that you are a failure or have let yourself or your family down: Not at all 7. Trouble concentrating on things, such as reading the newspaper or watching television: Not at all 8. Moving or speaking so slowly that other people could have noticed? - Or the opposite - being so fidgety or restless that you have been moving around a lot more than usual: not at all 9. Thoughts that you would be better off or of hurting yourself in some way: Not at all Total score: 0 Source: Developed by Drs. Ronnie Meehan, January Eng, Raji Fulton and colleagues, with an educational quyen from [employer]. Depression screen completed yes Social History Living Situation History Housing: House Housing Other:: pt lives with 2 kids and her fiance Tobacco History Smoking Status: Never smoker Second Hand Smoke Exposure: No Alcohol History Alcohol Intake: Current Alcohol Intake Frequency: 3 or More Drinks per Day Alcohol Intake Frequency Other:: every other day with 6 cans of beer Domestic Abuse History Do You Feel Safe at Home: Yes Review of Systems Report any current symptoms Only answer those that you have currently: Past Medical History Past Medical History Have you ever been diagnosed with any of the following: Neurological Problems Seizures: No Cardiology Problems Congestive Heart Failure: No Respiratory Problems Chronic Obstructive Pulmonary Disease (COPD): No Asthma: No Stomache/Intestinal Problems Gastroesophageal Reflux Disease: Yes Genital/Urinary Problems Renal Disease: No Endocrine Problems Diabetes Mellitus Type 1: No Diabetes Mellitus Type 2: No Blood Problems Anemia: Yes Sickle Cell Disease: No Other Problems Blood Transfusions: No Blood Transfusion Reaction: No Anesthesia Reactions: No History of Present Illness HPI Narrative 02/09: [facility]. Pt starte dnaltrexone , labs show iron levels of 17, will refer to iron infusions, and pt has been on zepbound for 5 months with minimal weight loss. will consider bariatric surgery Office Procedures [facility] LOC & Office Proc's Nursing/Assessment Patient Status: Established Patient [facility] Clinic Nursing Assessment: Medication Reconciliation, Update PMH in EMR and Vital Signs [facility] Coordination of Care: Complex Care and Chronic Disease 1-5, Consent,records obtained, informed consent, Education Simp Pt/Fam, Lab and Imaging orders, Results/Orders obtained and Staff clarify orders Established Patient Charge Established Patient Point Assignment: 105 Established Patient Point Charge: EP Level 3 (80-115)
[2025-02-09 14:08] VITALS: BP 144/90; PULSE 97; RESP 18; TEMP 36.6; O2SAT 96; BMI 55.5
== END 2025-02-09 14:35 | disposition home or self-care (01) ==
LOC: HODAHC 14:01
PROVIDERS: Supervising Provider Internal Medicine
DX: Z71.2 Person consulting for explanation of examination or test findings (principal)
CPT/HCPCS: 99213; G0463

== ENCOUNTER 2025-03-02 15:02 | Outpatient (AMB) | payer MEDICAID, SELFPAY ==
[2025-03-02 15:22] VITALS: BP 132/83; PULSE 93; RESP 18; TEMP 37.1; O2SAT 96; BMI 55.3
--- NOTE | 2025-03-02 15:22 | PD.RESCLINIC ---
Vital Signs 03/02/25 15:22 Height 1.55 m Height Method Stated Weight 132.903 kg Weight Measurement Method Standing Scale BMI 55.3 BP 132/83 H Blood Pressure Source Automatic Cuff Blood Pressure Location Right Upper Arm Position Sitting Respiration 18 Pulse 93 Pulse Source Monitor Temp 98.8 F Temp Source Temporal Artery Scan Pulse Oximetry (%) 96 Oxygen Delivery Method Room Air Allergies/Meds Allergies & Medications Allergies No Known Allergies Allergy (Verified 03/02/25 15:23) Medication Reconciliation acetaminophen 500 mg tablet 500 mg PO Q6H PRN pain #20 tabs 07/26/20 [Rx Confirmed 03/02/25] omeprazole magnesium 20 mg tablet,delayed release (Prilosec OTC) 20 mg PO QDAY #60 tabs 07/26/20 [Rx Confirmed 03/02/25] cephalexin 750 mg capsule 750 mg PO TID #10 caps 07/31/24 [Rx Confirmed 03/02/25] tirzepatide (weight loss) 2.5 mg/0.5 mL subcutaneous pen injector (Zepbound) 2.5 mg (0.5 mL) subcut QWEEK #2 mL 08/11/24 [Rx Confirmed 03/02/25] furosemide 20 mg tablet 20 mg PO QPM 30 days #30 tabs 10/06/24 [Rx Confirmed 03/02/25] tirzepatide 7.5 mg/0.5 mL subcutaneous pen injector 7.5 mg (0.5 mL) subcut QWEEK 30 days #2.5 mL 10/06/24 [Rx Confirmed 03/02/25] docusate sodium 100 mg capsule 100 mg PO BID PRN Constipation #60 caps 11/24/24 [Rx Confirmed 03/02/25] furosemide 40 mg tablet 40 mg PO QAM #30 tabs 11/24/24 [Rx Confirmed 03/02/25] clotrimazole 1 % topical cream (Antifungal (clotrimazole)) 1 applic topical BID 8 weeks #30 grams 01/12/25 [Rx Confirmed 03/02/25] ferrous sulfate 325 mg (65 mg iron) tablet 325 mg PO Q48H #60 tabs 01/12/25 [Rx Confirmed 03/02/25] naltrexone 50 mg tablet 50 mg PO QDAY #30 tabs 01/12/25 [Rx Confirmed 03/02/25] omeprazole 20 mg capsule,delayed release 20 mg PO QDAY 30 days #30 caps 01/12/25 [Rx Confirmed 03/02/25] tirzepatide 10 mg/0.5 mL subcutaneous pen injector 12.5 mg (0.625 mL) subcut QWEEK #2 mL 01/12/25 [Rx Confirmed 03/02/25] SHELLIE Intake Visit Data Collection New Patient or Established: Established Patient (seen at [facility] within 3 years) Seen by Clinical Staff ONLY (RN/SHELLIE): No Reason for Visit:: FOLLOW UP Pain Present Currently: No Pain scale:: 0 Pain Scale Used: Morgan-Hoffman/Numerical [employer] Teacher Required: No PCP or OBGYN visit in last 3 months: Yes Date of Last PCP or OBGYN visit: 02/09/25 Hx Now: No Do You Feel Safe at Home: Yes Authorities Contacted: N/A Smoking Status Smoking Status: Never smoker Past Medical History Past Medical History NEUROLOGIC: Negative Seizures CARDIAC: Negative Cardiac Disorders or Congestive Heart Failure RESPIRATORY: Negative Chronic Obstructive Pulmonary Disease (COPD) or Asthma GASTROINTESTINAL: Positive Gastroesophageal Reflux Disease GENITOURINARY: Negative Renal Disease ENDOCRINE: Negative Diabetes Mellitus Type 1 or Diabetes Mellitus Type 2 HEMATOLOGIC: Positive Anemia; Negative Sickle Cell Disease OTHER HISTORY: Negative Blood Transfusions, Blood Transfusion Reaction or Anesthesia Reactions Family History FAMILY HISTORY: Positive Family Cancer Social History SMOKING STATUS: Smoking status: Never smoker SECOND HAND EXPOSURE: second hand exposure: No ALCOHOL: Alcohol Intake: Current ALCOHOL FREQUENCY: Alcohol Intake Frequency: 3 or More Drinks per Day HOUSING: Housing: House LIVES WITH: Lives With: Family Patient Portal Questionaires PHQ-9 PHQ-2 Over the last 2 weeks, how often have you been bothered by any of the following problems? 1. Little interest or pleasure in doing things: not at all 2. Feeling down, depressed, or hopeless: not at all Total score: 0 PHQ-9 3. Trouble falling or staying asleep, or sleeping too much: Not at all 4. Feeling tired or having little energy: Not at all 5. Poor appetite or overeating: Not at all 6. Feeling bad about yourself - or that you are a failure or have let yourself or your family down: Not at all 7. Trouble concentrating on things, such as reading the newspaper or watching television: Not at all 8. Moving or speaking so slowly that other people could have noticed? - Or the opposite - being so fidgety or restless that you have been moving around a lot more than usual: not at all 9. Thoughts that you would be better off or of hurting yourself in some way: Not at all Total score: 0 If you checked off any problems, how difficult have these problems made it for you to do your work, take care of things at home, or get along with other people?: not difficult at all Source: Developed by Drs. Ronnie Meehan, January Eng, Raji Fulton and colleagues, with an educational quyen from [employer]. Depression screen completed yes Social History Living Situation History Housing: House Housing Other:: pt lives with 2 kids and her fiance Tobacco History Smoking Status: Never smoker Second Hand Smoke Exposure: No Alcohol History Alcohol Intake: Current Alcohol Intake Frequency: 3 or More Drinks per Day Alcohol Intake Frequency Other:: every other day with 6 cans of beer Domestic Abuse History Do You Feel Safe at Home: Yes Review of Systems Report any current symptoms Only answer those that you have currently: Past Medical History Past Medical History Have you ever been diagnosed with any of the following: Neurological Problems Seizures: No Cardiology Problems Congestive Heart Failure: No Respiratory Problems Chronic Obstructive Pulmonary Disease (COPD): No Asthma: No Stomache/Intestinal Problems Gastroesophageal Reflux Disease: Yes Genital/Urinary Problems Renal Disease: No Endocrine Problems Diabetes Mellitus Type 1: No Diabetes Mellitus Type 2: No Blood Problems Anemia: Yes Sickle Cell Disease: No Other Problems Blood Transfusions: No Blood Transfusion Reaction: No Anesthesia Reactions: No History of Present Illness HPI Narrative Ms. Stewart is a 54 year old female with past medical history significant for symptomatic anemia, GERD and morbid obesity. 11/24: Patient is in office for follow-up visit and medication refill. Patient states she has continued to make dietary changes and the weight loss with this amount has been very minimal. Patient continues to have shortness of breath with ambulation however she is not hypoxic she is saturating above 94% on room air. Patient endorses to using BiPAP at night daily. Patient is inquiring about an increased dose of Zepbound. Review of Systems Review of Systems Systems Reviewed: All systems reviewed, normal except as documented Objective/Exam Narrative Physical exam: GENERAL: morbidly obese female, AO x3, cooperative and pleasant, Not in acute distress NEURO: no focal neurological deficits HEENT: Atraumatic, Normocephalic. mucous membranes moist. Eyes open, symmetrical, & clear HEART: Normal Heart Sounds LUNGS: Clear to auscultation with no wheezing or crackles. ABDOMEN: soft, non-distended, non-tender, bowel sounds heard, no guarding or rebound tenderness SKIN: No Rash or ecchymoses EXTREMITIES: 1+ edema, tenderness, able to move all 4 extremities, pedal pulses palpated Assessment & Plan Diagnosis / Problem List (1) Morbid obesity: Status: Acute Assessment & Plan: Currently Pt is has lost 3 pounds on 2 months of zepound. Pt reports no side affects including nausea/vomiting, diarhea, constipation or GERD Plan: -Continue zepbound to 10mg -continue calorie count -introduce mild exercise to daily routine Office Procedures [facility] Level of Care Nursing/Assessment Patient Status: Established Patient Nursing Assessment/Reassessment: Medication Reconciliation, Update PMH in EMR and Vital Signs Coordination of Care: Complex Care and Chronic Disease 1-5, Consent,records obtained, informed consent, Education Simp Pt/Fam and Staff clarify orders Established Patient Charge Established Patient Point Assignment: 85 Established Patient Point Charge: EP Level 3 (80-115)
== END 2025-03-02 16:20 | disposition home or self-care (01) ==
LOC: HODAHC 15:02
PROVIDERS: Supervising Provider Internal Medicine
DX: E66.01 Morbid (severe) obesity due to excess calories (principal); Z68.43 Body mass index [BMI] 50.0-59.9, adult
CPT/HCPCS: 99213; G0463

== ENCOUNTER 2025-03-23 15:32 | Outpatient (AMB) | payer MEDICAID, SELFPAY ==
[2025-03-23 15:47] VITALS: BP 111/70; PULSE 87; TEMP 36.6; O2SAT 95; BMI 56.1
--- NOTE | 2025-03-23 15:47 | ACNOTE_ITS ---
Vital Signs 03/23/25 15:47 Height 1.55 m Height Method Stated Weight 134.83 kg Weight Measurement Method Standing Scale BMI 56.1 BP 111/70 Blood Pressure Source Automatic Cuff Blood Pressure Location Right Upper Arm Position Sitting Pulse 87 Pulse Source Monitor Temp 97.9 F Temp Source Temporal Artery Scan Pulse Oximetry (%) 95 Oxygen Delivery Method Room Air Allergies/Meds Allergies & Medications Allergies No Known Allergies Allergy (Verified 03/23/25 15:48) Medication Reconciliation acetaminophen 500 mg tablet 500 mg PO Q6H PRN pain #20 tabs 07/26/20 [Rx Confirmed 03/23/25] omeprazole magnesium 20 mg tablet,delayed release (Prilosec OTC) 20 mg PO QDAY #60 tabs 07/26/20 [Rx Confirmed 03/23/25] cephalexin 750 mg capsule 750 mg PO TID #10 caps 07/31/24 [Rx Confirmed 03/23/25] tirzepatide (weight loss) 2.5 mg/0.5 mL subcutaneous pen injector (Zepbound) 2.5 mg (0.5 mL) subcut QWEEK #2 mL 08/11/24 [Rx Confirmed 03/23/25] furosemide 20 mg tablet 20 mg PO QPM 30 days #30 tabs 10/06/24 [Rx Confirmed 03/23/25] tirzepatide 7.5 mg/0.5 mL subcutaneous pen injector 7.5 mg (0.5 mL) subcut QWEEK 30 days #2.5 mL 10/06/24 [Rx Confirmed 03/23/25] docusate sodium 100 mg capsule 100 mg PO BID PRN Constipation #60 caps 11/24/24 [Rx Confirmed 03/23/25] furosemide 40 mg tablet 40 mg PO QAM #30 tabs 11/24/24 [Rx Confirmed 03/23/25] ferrous sulfate 325 mg (65 mg iron) tablet 325 mg PO Q48H #60 tabs 01/12/25 [Rx Confirmed 03/23/25] naltrexone 50 mg tablet 50 mg PO QDAY #30 tabs 01/12/25 [Rx Confirmed 03/23/25] omeprazole 20 mg capsule,delayed release 20 mg PO QDAY 30 days #30 caps 01/12/25 [Rx Confirmed 03/23/25] tirzepatide 10 mg/0.5 mL subcutaneous pen injector 12.5 mg (0.625 mL) subcut QWEEK #2 mL 01/12/25 [Rx Confirmed 03/23/25] SHELLIE Intake Visit Data Collection New Patient or Established: Established Patient (seen at [facility] within 3 years) Seen by Clinical Staff ONLY (RN/SHELLIE): No Reason for Visit:: FOLLOW UP Pain Present Currently: No Pain scale:: 0 Pain Scale Used: Morgan-Hoffman/Numerical [employer] Examiner Required: No PCP or OBGYN visit in last 3 months: Yes Date of Last PCP or OBGYN visit: 03/02/25 Hx Now: No Do You Feel Safe at Home: Yes Authorities Contacted: N/A Smoking Status Smoking Status: Never smoker Immunization / Flu Flu Vaccine in the Last 12 Months: Yes Flu Vaccine Exclusion Criteria: Already Received Past Medical History Past Medical History NEUROLOGIC: Negative Seizures CARDIAC: Negative Cardiac Disorders or Congestive Heart Failure RESPIRATORY: Negative Chronic Obstructive Pulmonary Disease (COPD) or Asthma GASTROINTESTINAL: Positive Gastroesophageal Reflux Disease GENITOURINARY: Negative Renal Disease ENDOCRINE: Negative Diabetes Mellitus Type 1 or Diabetes Mellitus Type 2 HEMATOLOGIC: Positive Anemia; Negative Sickle Cell Disease OTHER HISTORY: Negative Blood Transfusions, Blood Transfusion Reaction or Anesthesia Reactions Family History FAMILY HISTORY: Positive Family Cancer Social History SMOKING STATUS: Smoking status: Never smoker SECOND HAND EXPOSURE: second hand exposure: No ALCOHOL: Alcohol Intake: Current ALCOHOL FREQUENCY: Alcohol Intake Frequency: 3 or More Drinks per Day HOUSING: Housing: House LIVES WITH: Lives With: Family Patient Portal Questionaires PHQ-9 PHQ-2 Over the last 2 weeks, how often have you been bothered by any of the following problems? 1. Little interest or pleasure in doing things: not at all 2. Feeling down, depressed, or hopeless: not at all Total score: 0 PHQ-9 3. Trouble falling or staying asleep, or sleeping too much: Not at all 4. Feeling tired or having little energy: Not at all 5. Poor appetite or overeating: Not at all 6. Feeling bad about yourself - or that you are a failure or have let yourself or your family down: Not at all 7. Trouble concentrating on things, such as reading the newspaper or watching television: Not at all 8. Moving or speaking so slowly that other people could have noticed? - Or the opposite - being so fidgety or restless that you have been moving around a lot more than usual: not at all 9. Thoughts that you would be better off or of hurting yourself in some way: Not at all Total score: 0 If you checked off any problems, how difficult have these problems made it for you to do your work, take care of things at home, or get along with other p eople?: not difficult at all Source: Developed by Drs. Ronnie Meehan, January Eng, Raji Fulton and colleagues, with an educational quyen from [employer]. Depression screen completed yes Social History Living Situation History Marital Status: Lives With: Family Housing: House Housing Other:: pt lives with 2 kids and her fiance Tobacco History Smoking Status: Never smoker Second Hand Smoke Exposure: No Alcohol History Alcohol Intake: Current Alcohol Intake Frequency: 3 or More Drinks per Day Alcohol Intake Frequency Other:: every other day with 6 cans of beer Domestic Abuse History Do You Feel Safe at Home: Yes Review of Systems Report any current symptoms Only answer those that you have currently: Past Medical History Past Medical History Have you ever been diagnosed with any of the following: Neurological Problems Seizures: No Cardiology Problems Congestive Heart Failure: No Respiratory Problems Chronic Obstructive Pulmonary Disease (COPD): No Asthma: No Stomache/Intestinal Problems Gastroesophageal Reflux Disease: Yes Genital/Urinary Problems Renal Disease: No Endocrine Problems Diabetes Mellitus Type 1: No Diabetes Mellitus Type 2: No Blood Problems Anemia: Yes Sickle Cell Disease: No Other Problems Blood Transfusions: No Blood Transfusion Reaction: No Anesthesia Reactions: No History of Present Illness HPI Narrative Ms. Stewart is a 54 year old female with past medical history significant for symptomatic anemia, GERD and morbid obesity. 11/24: Patient is in office for follow-up visit and medication refill. Patient states she has continued to make dietary changes and the weight loss with this amount has been very minimal. Patient continues to have shortness of breath with ambulation however she is not hypoxic she is saturating above 94% on room air. Patient endorses to using BiPAP at night daily and continues to feel tired through out the day. Pt states she takes multiple naps and stays in bed most of the day. Patient is also inquiring about an increased dose of Zepbound. Office Procedures [facility] Level of Care Nursing/Assessment Patient Status: Established Patient Nursing Assessment/Reassessment: Medication Reconciliation, Update PMH in EMR and Vital Signs Coordination of Care: Complex Care and Chronic Disease 1-5, Consent,records obtained, informed consent, Education Simp Pt/Fam and Staff clarify orders Established Patient Charge Established Patient Point Assignment: 85 Established Patient Point Charge: EP Level 3 (80-115)
== END 2025-03-23 16:35 | disposition home or self-care (01) ==
LOC: HODAHC 15:32
PROVIDERS: Supervising Provider Internal Medicine
DX: E66.01 Morbid (severe) obesity due to excess calories (principal); Z68.43 Body mass index [BMI] 50.0-59.9, adult; K21.9 Gastro-esophageal reflux disease without esophagitis; D64.9 Anemia, unspecified
CPT/HCPCS: 99213; G0463

== ENCOUNTER 2025-06-05 08:51 | Outpatient (AMB) | payer MEDICAID, SELFPAY ==
[2025-06-05 09:01] VITALS: BP 183/81; PULSE 89; RESP 18; TEMP 36.5; O2SAT 95; BMI 54.8
--- NOTE | 2025-06-05 09:01 | PD.RESCLINIC ---
Vital Signs 06/05/25 09:01 Height 1.55 m Height Method Stated Weight 131.655 kg Weight Measurement Method Standing Scale BMI 54.8 BP 183/81 H Blood Pressure Source Automatic Cuff Blood Pressure Location Right Upper Arm Position Sitting Respiration 18 Pulse 89 Pulse Source Monitor Temp 97.7 F Temp Source Oral Pulse Oximetry (%) 95 Oxygen Delivery Method Room Air Allergies/Meds Allergies & Medications Allergies No Known Allergies Allergy (Verified 06/05/25 09:02) Medication Reconciliation acetaminophen 500 mg tablet 500 mg PO Q6H PRN pain #20 tabs 07/26/20 [Rx Confirmed 06/05/25] omeprazole magnesium 20 mg tablet,delayed release (Prilosec OTC) 20 mg PO QDAY #60 tabs 07/26/20 [Rx Confirmed 06/05/25] cephalexin 750 mg capsule 750 mg PO TID #10 caps 07/31/24 [Rx Confirmed 06/05/25] tirzepatide (weight loss) 2.5 mg/0.5 mL subcutaneous pen injector (Zepbound) 2.5 mg (0.5 mL) subcut QWEEK #2 mL 08/11/24 [Rx Confirmed 06/05/25] furosemide 20 mg tablet 20 mg PO QPM 30 days #30 tabs 10/06/24 [Rx Confirmed 06/05/25] tirzepatide 7.5 mg/0.5 mL subcutaneous pen injector 7.5 mg (0.5 mL) subcut QWEEK 30 days #2.5 mL 10/06/24 [Rx Confirmed 06/05/25] docusate sodium 100 mg capsule 100 mg PO BID PRN Constipation #60 caps 11/24/24 [Rx Confirmed 06/05/25] furosemide 40 mg tablet 40 mg PO QAM #30 tabs 11/24/24 [Rx Confirmed 06/05/25] ferrous sulfate 325 mg (65 mg iron) tablet 325 mg PO Q48H #60 tabs 01/12/25 [Rx Confirmed 06/05/25] naltrexone 50 mg tablet 50 mg PO QDAY #30 tabs 01/12/25 [Rx Confirmed 06/05/25] omeprazole 20 mg capsule,delayed release 20 mg PO QDAY 30 days #30 caps 01/12/25 [Rx Confirmed 06/05/25] tirzepatide 10 mg/0.5 mL subcutaneous pen injector 12.5 mg (0.625 mL) subcut QWEEK #2 mL 01/12/25 [Rx Confirmed 06/05/25] tirzepatide 15 mg/0.5 mL subcutaneous pen injector 15 mg (0.5 mL) subcut QWEEK #2 mL 03/23/25 [Rx Confirmed 06/05/25] semaglutide (weight loss) 0.5 mg/0.5 mL subcutaneous pen injector (Wegovy) 0.5 mg (0.5 mL) subcut QWEEK #2 mL 06/05/25 [Rx] MA Intake Visit Data Collection New Patient or Established: Established Patient (seen at [facility] within 3 years) Seen by Clinical Staff ONLY (RN/MA): No Pain Present Currently: No Pain scale:: 0 Pain Scale Used: Morgan-Hoffman/Numerical PCP or OBGYN visit in last 3 months: No Do You Feel Safe at Home: Yes Authorities Contacted: N/A Smoking Status Smoking Status: Never smoker Immunization / Flu Flu Vaccine in the Last 12 Months: No Flu Vaccine Exclusion Criteria: No Exclusion Criteria Past Medical History Past Medical History NEUROLOGIC: Negative Seizures CARDIAC: Negative Cardiac Disorders or Congestive Heart Failure RESPIRATORY: Negative Chronic Obstructive Pulmonary Disease (COPD) or Asthma GASTROINTESTINAL: Positive Gastroesophageal Reflux Disease GENITOURINARY: Negative Renal Disease ENDOCRINE: Negative Diabetes Mellitus Type 1 or Diabetes Mellitus Type 2 HEMATOLOGIC: Positive Anemia; Negative Sickle Cell Disease OTHER HISTORY: Negative Blood Transfusions, Blood Transfusion Reaction or Anesthesia Reactions Family History FAMILY HISTORY: Positive Family Cancer Social History SMOKING STATUS: Smoking status: Never smoker SECOND HAND EXPOSURE: second hand exposure: No ALCOHOL: Alcohol Intake: Current ALCOHOL FREQUENCY: Alcohol Intake Frequency: 3 or More Drinks per Day HOUSING: Housing: House LIVES WITH: Lives With: Family Patient Portal Questionaires PHQ-9 PHQ-2 Over the last 2 weeks, how often have you been bothered by any of the following problems? 1. Little interest or pleasure in doing things: not at all PHQ-9 8. Moving or speaking so slowly that other people could have noticed? - Or the opposite - being so fidgety or restless that you have been moving around a lot more than usual: not at all Source: Developed by Drs. Ronnie Meehan, January Eng, Raji Fulton and colleagues, with an educational quyen from [employer]. Social History Living Situation History Lives With: Family Housing: House Housing Other:: pt lives with 2 kids and her fiance Tobacco History Smoking Status: Never smoker Second Hand Smoke Exposure: No Alcohol History Alcohol Intake: Current Alcohol Intake Frequency: 3 or More Drinks per Day Alcohol Intake Frequency Other:: every other day with 6 cans of beer Domestic Abuse History Do You Feel Safe at Home: Yes Review of Systems Report any current symptoms Only answer those that you have currently: Past Medical History Past Medical History Have you ever been diagnosed with any of the following: Neurological Problems Seizures: No Cardiology Problems Congestive Heart Failure: No Respiratory Problems Chronic Obstructive Pulmonary Disease (COPD): No Asthma: No Stomache/Intestinal Problems Gastroesophageal Reflux Disease: Yes Genital/Urinary Problems Renal Disease: No Endocrine Problems Diabetes Mellitus Type 1: No Diabetes Mellitus Type 2: No Blood Problems Anemia: Yes Sickle Cell Disease: No Other Problems Blood Transfusions: No Blood Transfusion Reaction: No Anesthesia Reactions: No History of Present Illness HPI Narrative Ms. Stewart is a 54 year old female with past medical history significant for symptomatic anemia, GERD and morbid obesity. 11/24: Patient is in office for follow-up visit and medication refill. Patient states she has continued to make dietary changes and the weight loss with this amount has been very minimal. Patient continues to have shortness of breath with ambulation however she is not hypoxic she is saturating above 94% on room air. Patient endorses to using BiPAP at night daily and continues to feel tired through out the day. Pt states she takes multiple naps and stays in bed most of the day. Patient is also inquiring about an increased dose of Zepbound. 01/12: Pt is here for follow up appointment for her weight loss. Pt states she has not lost any weight has platued, requested to increase the dose of zepbound. Pt's currently weights 134.17 kg. Pt is currently saturating on room air. continues to have some shortness of breath, mostly relates it to walking up the stairs for her appointment here today. Pt states her current dose of zepbound is not suppressing her appetite very much. Denies any side affects to the zepbound so far, denies abdominal pain, nausea, vomiting or headaches. Pt also states that she has been binge drinking beers on the weeks and would like to quit. And wants something to help reduce the cravings. 02/09: Pt is in [facility] for follow up on labs. labs show iron levels of 17, will refer to iron infusions, and pt has been on zepbound for 5 months with minimal weight loss. will consider bariatric surgery in the future if pt continues to plateu. Pt started on naltrexone to reduce alcohol cravings. Heladio pt is given lab slip to complete LFTs before starting medications and will repeat LFTs 30 days after. Pt continues to eel fatigued and excessive daytime sleepiness. Pt states she does not feel well rested through out the day. 03/02: Pt is in office requesting antibiotics. Pt has been feeling URI since yesterday, complains of bodyaches, running nose and nasal congestions. Pt denies fever, cough with phelgm. Pt's grandkids were sick with similar symptoms recently. pt denies any wheezing or SOB. continues to use Trilogy over night and oxygen during the day as need when feeling shortness of breath. 03/23: Pt is in office for follow up visit and medication refills. Pt has no recent hospitalizations, saturating on room air most of the day. And is not requiring supplemental oxygen, at night pt is regularly using BiPAP. Despite Bipap at night pt states she continues to feel fatigued most of the day. Otherwise, Pt is not satisfied with weightloss despite exercise and dietary attempts. Will continue zepbound for additional month, however pt is inquiring about alternative weighloss which will likely help her with having more energy to exercise more. 06/05/25- Pt is in office for follow up appointment. Pt is saturating well on room and has not been using supplemental oxygen during the day. Pt continues to use Bipap at night. Pt feels very disappointment that she has not lost enough weight with zepbound in almost 10 months. pt states she feels like she is trying her best and despite dietary changes and exercise she is not losing the weight as most people would with zepbounce at the dose she has been. pt is inquiring that [facility] would like to try wegovy and see if that would help with weight loss and work better. Pt is also inquiring about possibly bariatric surgery and wants to do some research on the surgeon and would like to do a consultation if she would be a candidate for bariatric surgery for weight loss. Review of Systems Review of Systems Systems Reviewed: All systems reviewed, normal except as documented Objective/Exam Narrative Physical exam: GENERAL: A&Ox3 . morbidly obese female, pleasant Awake, Not in acute distress NEURO: no focal neurological deficits HEENT: Atraumatic, Normocephalic. mucous membranes moist. Eyes open, symmetrical, & clear HEART: Normal Heart Sounds LUNGS: Clear to auscultation with no wheezing or crackles. ABDOMEN: soft, non-distended, non-tender, bowel sounds heard, no guarding or rebound tenderness SKIN: No Rash or ecchymoses EXTREMITIES: No edema, tenderness, able to move all 4 extremities, pedal pulses palpated Assessment & Plan Diagnosis / Problem List (1) Morbid obesity: Status: Acute Assessment & Plan: Currently Pt is has not lost significant weight with zepbound. Pt reports no side affects including nausea/vomiting, diarrhea, constipation or GERD Plan: -Will switch from zepbound 12.5mg weekly to Wegovy 0.5mg weekly -Continue calorie count -Continue exercise and dietary modification -Pt will also inquire and do her own research on bariatric surgery and will decide at later time Additional Assessment Attending note: I, Babar Keith MD, attest that I was physically present for the ribera portions of the service and evaluated the patient with the resident and I reviewed and discussed the case with the resident and agree with the resident's findings and plans of care as documented above. Babar Keith MD Physician Billing Established Patient Established Patient: E/M Level 3-CPT 26255 Office Procedures [facility] Level of Care Nursing/Assessment Patient Status: Established Patient Nursing Assessment/Reassessment: Medication Reconciliation, Update PMH in EMR and Vital Signs Coordination of Care: Complex Care and Chronic Disease 1-5, Education Complex Pt/Fam and Staff clarify orders Established Patient Charge Established Patient Point Assignment: 85 Established Patient Point Charge: EP Level 3 (80-115)
== END 2025-06-05 09:45 | disposition home or self-care (01) ==
LOC: HODAHC 08:51
DX: E66.01 Morbid (severe) obesity due to excess calories (principal); Z68.43 Body mass index [BMI] 50.0-59.9, adult; Z71.3 Dietary counseling and surveillance
CPT/HCPCS: 99213; G0463

== ENCOUNTER 2025-09-15 13:25 | Outpatient (AMB) | payer MEDICAID, SELFPAY ==
[2025-09-15 13:33] VITALS: BP 144/84; PULSE 115; RESP 18; TEMP 36.2; O2SAT 96; BMI 55.7
--- NOTE | 2025-09-15 13:33 | PD.RESCLINIC ---
Vital Signs 09/15/25 13:33 Height 1.55 m Height Method Stated Weight 133.98 kg Weight Measurement Method Standing Scale BMI 55.7 BP 144/84 H Blood Pressure Source Automatic Cuff Blood Pressure Location Left Upper Arm Position Sitting Respiration 18 Pulse 115 H Pulse Source Monitor Temp 97.2 F Temp Source Oral Pulse Oximetry (%) 96 Oxygen Delivery Method Room Air Allergies/Meds Allergies & Medications Allergies No Known Allergies Allergy (Verified 09/15/25 13:34) Medication Reconciliation acetaminophen 500 mg tablet 500 mg PO Q6H PRN pain #20 tabs 07/26/20 [Rx Confirmed 09/15/25] omeprazole magnesium 20 mg tablet,delayed release (Prilosec OTC) 20 mg PO QDAY #60 tabs 07/26/20 [Rx Confirmed 09/15/25] cephalexin 750 mg capsule 750 mg PO TID #10 caps 07/31/24 [Rx Confirmed 09/15/25] tirzepatide (weight loss) 2.5 mg/0.5 mL subcutaneous pen injector (Zepbound) 2.5 mg (0.5 mL) subcut QWEEK #2 mL 08/11/24 [Rx Confirmed 09/15/25] furosemide 20 mg tablet 20 mg PO QPM 30 days #30 tabs 10/06/24 [Rx Confirmed 09/15/25] tirzepatide 7.5 mg/0.5 mL subcutaneous pen injector 7.5 mg (0.5 mL) subcut QWEEK 30 days #2.5 mL 10/06/24 [Rx Confirmed 09/15/25] docusate sodium 100 mg capsule 100 mg PO BID PRN Constipation #60 caps 11/24/24 [Rx Confirmed 09/15/25] ferrous sulfate 325 mg (65 mg iron) tablet 325 mg PO Q48H #60 tabs 01/12/25 [Rx Confirmed 09/15/25] naltrexone 50 mg tablet 50 mg PO QDAY #30 tabs 01/12/25 [Rx Confirmed 09/15/25] tirzepatide 10 mg/0.5 mL subcutaneous pen injector 12.5 mg (0.625 mL) subcut QWEEK #2 mL 01/12/25 [Rx Confirmed 09/15/25] tirzepatide 15 mg/0.5 mL subcutaneous pen injector 15 mg (0.5 mL) subcut QWEEK #2 mL 03/23/25 [Rx Confirmed 09/15/25] semaglutide (weight loss) 0.5 mg/0.5 mL subcutaneous pen injector (Wegovy) 0.5 mg (0.5 mL) subcut QWEEK #2 mL 06/05/25 [Rx Confirmed 09/15/25] furosemide 40 mg tablet 40 mg PO QAM #30 tabs 09/11/25 [Rx Confirmed 09/15/25] omeprazole 20 mg capsule,delayed release 20 mg PO QDAY 30 days #30 caps 09/11/25 [Rx Confirmed 09/15/25] MA Intake Visit Data Collection New Patient or Established: Established Patient (seen at [facility] within 3 years) Seen by Clinical Staff ONLY (RN/SHELLIE): No Reason for Visit:: WORK RELEASE Pain Present Currently: No Pain scale:: 0 Pain Scale Used: Morgan-Hoffman/Numerical [employer] Required: No PCP or OBGYN visit in last 3 months: Yes Date of Last PCP or OBGYN visit: 06/25/25 Hx Now: No Do You Feel Safe at Home: Yes Authorities Contacted: N/A Smoking Status Smoking Status: Never smoker Immunization / Flu Flu Vaccine in the Last 12 Months: No Flu Vaccine Exclusion Criteria: No Exclusion Criteria Past Medical History Past Medical History NEUROLOGIC: Negative Seizures CARDIAC: Negative Cardiac Disorders or Congestive Heart Failure RESPIRATORY: Negative Chronic Obstructive Pulmonary Disease (COPD) or Asthma GASTROINTESTINAL: Positive Gastroesophageal Reflux Disease GENITOURINARY: Negative Renal Disease ENDOCRINE: Negative Diabetes Mellitus Type 1 or Diabetes Mellitus Type 2 HEMATOLOGIC: Positive Anemia; Negative Sickle Cell Disease OTHER HISTORY: Negative Blood Transfusions, Blood Transfusion Reaction or Anesthesia Reactions Family History FAMILY HISTORY: Positive Family Cancer Social History SMOKING STATUS: Smoking status: Never smoker SECOND HAND EXPOSURE: second hand exposure: No ALCOHOL: Alcohol Intake: Current ALCOHOL FREQUENCY: Alcohol Intake Frequency: 3 or More Drinks per Day HOUSING: Housing: House LIVES WITH: Lives With: Family Patient Portal Questionaires PHQ-9 PHQ-2 Over the last 2 weeks, how often have you been bothered by any of the following problems? 1. Little interest or pleasure in doing things: not at all 2. Feeling down, depressed, or hopeless: not at all Total score: 0 PHQ-9 3. Trouble falling or staying asleep, or sleeping too much: Not at all 4. Feeling tired or having little energy: Not at all 5. Poor appetite or overeating: Not at all 6. Feeling bad about yourself - or that you are a failure or have let yourself or your family down: Not at all 7. Trouble concentrating on things, such as reading the newspaper or watching television: Not at all 8. Moving or speaking so slowly that other people could have noticed? - Or the opposite - being so fidgety or restless that you have been moving around a lot more than usual: not at all 9. Thoughts that you would be better off or of hurting yourself in some way: Not at all Total score: 0 If you checked off any problems, how difficult have these problems made it for you to do your work, take care of things at home, or get along with other people?: not difficult at all Source: Developed by Drs. Ronnie Meehan, January Eng, Raji Fulton and colleagues, with an educational quyen from [employer]. Depression screen completed yes Social History Living Situation History Lives With: Family Housing: House Housing Other:: pt lives with 2 kids and her fiance Tobacco History Smoking Status: Never smoker Second Hand Smoke Exposure: No Alcohol History Alcohol Intake: Current Alcohol Intake Frequency: 3 or More Drinks per Day Alcohol Intake Frequency Other:: every other day with 6 cans of beer Domestic Abuse History Do You Feel Safe at Home: Yes Review of Systems Report any current symptoms Only answer those that you have currently: Past Medical History Past Medical History Have you ever been diagnosed with any of the following: Neurological Problems Seizures: No Cardiology Problems Congestive Heart Failure: No Respiratory Problems Chronic Obstructive Pulmonary Disease (COPD): No Asthma: No Stomache/Intestinal Problems Gastroesophageal Reflux Disease: Yes Genital/Urinary Problems Renal Disease: No Endocrine Problems Diabetes Mellitus Type 1: No Diabetes Mellitus Type 2: No Blood Problems Anemia: Yes Sickle Cell Disease: No Other Problems Blood Transfusions: No Blood Transfusion Reaction: No Anesthesia Reactions: No History of Present Illness HPI Narrative Ms. Stewart is a 54 year old female with past medical history significant for symptomatic anemia, GERD and morbid obesity. 11/24: Patient is in office for follow-up visit and medication refill. Patient states she has continued to make dietary changes and the weight loss with this amount has been very minimal. Patient continues to have shortness of breath with ambulation however she is not hypoxic she is saturating above 94% on room air. Patient endorses to using BiPAP at night daily and continues to feel tired through out the day. Pt states she takes multiple naps and stays in bed most of the day. Patient is also inquiring about an increased dose of Zepbound. 01/12: Pt is here for follow up appointment for her weight loss. Pt states she has not lost any weight has platued, requested to increase the dose of zepbound. Pt's currently weights 134.17 kg. Pt is currently saturating on room air. continues to have some shortness of breath, mostly relates it to walking up the stairs for her appointment here today. Pt states her current dose of zepbound is not suppressing her appetite very much. Denies any side affects to the zepbound so far, denies abdominal pain, nausea, vomiting or headaches. Pt also states that she has been binge drinking beers on the weeks and would like to quit. And wants something to help reduce the cravings. 02/09: Pt is in [facility] for follow up on labs. labs show iron levels of 17, will refer to iron infusions, and pt has been on zepbound for 5 months with minimal weight loss. will consider bariatric surgery in the future if pt continues to plateu. Pt started on naltrexone to reduce alcohol cravings. Heladio pt is given lab slip to complete LFTs before starting medications and will repeat LFTs 30 days after. Pt continues to eel fatigued and excessive daytime sleepiness. Pt states she does not feel well rested through out the day. 03/02: Pt is in office requesting antibiotics. Pt has been feeling URI since yesterday, complains of bodyaches, running nose and nasal congestions. Pt denies fever, cough with phelgm. Pt's grandkids were sick with similar symptoms recently. pt denies any wheezing or SOB. continues to use Trilogy over night and oxygen during the day as need when feeling shortness of breath. 03/23: Pt is in office for follow up visit and medication refills. Pt has no recent hospitalizations, saturating on room air most of the day. And is not requiring supplemental oxygen, at night pt is regularly using BiPAP. Despite Bipap at night pt states she continues to feel fatigued most of the day. Otherwise, Pt is not satisfied with weightloss despite exercise and dietary attempts. Will continue zepbound for additional month, however pt is inquiring about alternative weighloss which will likely help her with having more energy to exercise more. 06/05/25- Pt is in office for follow up appointment. Pt is saturating well on room and has not been using supplemental oxygen during the day. Pt continues to use Bipap at night. Pt feels very disappointment that she has not lost enough weight with zepbound in almost 10 months. pt states she feels like she is trying her best and despite dietary changes and exercise she is not losing the weight as most people would with zepbounce at the dose she has been. pt is inquiring that [facility] would like to try wegovy and see if that would help with weight loss and work better. Pt is also inquiring about possibly bariatric surgery and wants to do some research on the surgeon and would like to do a consultation if she would be a candidate for bariatric surgery for weight loss. 09/15/2025: The patient is here for f/u appointment and reported not requiring oxygen at day time and is compliant with CPAP at night. She denied any HAMPTON or chest pain or palpitations. She was provided with work release form. She was made aware that if she develops HAMPTON or chest pain, she should visit ED or come back for f/u. Review of Systems Review of Systems Systems Reviewed: All systems reviewed, normal except as documented Objective/Exam Narrative Physical exam: GENERAL: A&Ox3 . morbidly obese female, pleasant Awake, Not in acute distress NEURO: no focal neurological deficits HEENT: Atraumatic, Normocephalic. mucous membranes moist. Eyes open, symmetrical, & clear HEART: Normal Heart Sounds LUNGS: Clear to auscultation with no wheezing or crackles. ABDOMEN: soft, non-distended, non-tender, bowel sounds heard, no guarding or rebound tenderness SKIN: No Rash or ecchymoses EXTREMITIES: No edema, tenderness, able to move all 4 extremities, pedal pulses palpated Assessment & Plan Diagnosis / Problem List (1) URI (upper respiratory infection): Status: Acute Assessment & Plan: The patient had recent hospital visit for CAP and was discharged on home O2. SHe reported not requiring supplemental O2 any more and has completed her course of antibiotics. Plan: - Work release form provided. - Light work for couple days The case was discussed with my attending MD Zhou Evans MD Office Procedures [facility] LOC & Office Proc's Nursing/Assessment Patient Status: Established Patient OB Clinic Nursing Assessment: Medication Reconciliation, Update PMH in EMR and Vital Signs OB Clinic Coordination of Care: Complex Care and Chronic Disease 1-5, Education Complex Pt/Fam, Consent,records obtained, informed consent, Lab and Imaging orders, Results/Orders obtained and Staff clarify orders Established Patient Charge Established Patient Point Assignment: 110 Established Patient Point Charge: EP Level 3 (80-115) TB Screening LTBI Screening: Has patient traveled, was born, or resided for at least 1 month, or frequent border crossing into a country with an elevated TB rate: No Immunosuppression, current or planned (HIV, organ transplant, treated with biologic agents, steroids, or other immunosuppression medication): No Close contact to someone with infectious TB disease during lifetime: No Homelessness or incarceration, current or past: No TB testing indicated at this time (at least 1 yes above): No
== END 2025-09-15 13:50 | disposition home or self-care (01) ==
LOC: HODAHC 13:25
PROVIDERS: Supervising Provider Internal Medicine; Visit Provider Student in an Organized Health Care Education/Training Program
DX: J06.9 Acute upper respiratory infection, unspecified (principal)
CPT/HCPCS: 99213; G0463